=== PATIENT | male | born 1970 ===

== ENCOUNTER → 2020-05-19 | Day surgery (SDC) | payer OTHER ==
[~2020-05-19] MED LIST: KETOROLAC TROME10 MG PO; MINIPRES1 MG PO; PERCOCET 5-3251 EACH PO; PRINIVIL20 MG PO; TOPROL XL 25MG25 MG PO; TRAZODONE 100M100 MG PO
[2020-05-19 07:43] LABS: HCT 46.9 % (42.0-52.0); HGB 15.6 g/dl (13.2-18.0); MCH 29.2 pg (25.0-31.0); MCHC 33.3 g/dL (32.0-36.0); MCV 87.7 fL (78.0-100.0); MPV 9.6 fL (6.0-9.5); RBC 5.35 M/uL (4.70-6.00); RDW 13.4 % (11.5-14.0); WBC 8.7 K/uL (4.0-10.5)
[2020-05-19 08:07] LABS: ALBUMIN 3.6 g/dL (3.4-5.0); BILIRUBIN - TOTAL 0.3 mg/dL (0.2-1.0); GLOBULIN (CALCULATION) 3.9 g/dL; POTASSIUM 4.1 mmol/L (3.5-5.1); TOTAL PROTEIN 7.5 g/dL (6.4-8.2)
== END | disposition home or self-care (01) ==
LOC: FAS 06:43
PROVIDERS: Orthopaedic Surgery
DX: S83.232A Complex tear of medial meniscus, current injury, left knee, initial encounter (principal); M79.4 Hypertrophy of (infrapatellar) fat pad; M25.862 Other specified joint disorders, left knee; F17.210 Nicotine dependence, cigarettes, uncomplicated; I10 Essential (primary) hypertension; Z79.899 Other long term (current) drug therapy; Z88.0 Allergy status to penicillin; X58.XXXA Exposure to other specified factors, initial encounter
CPT/HCPCS: 36415; 80053; J1100; J1170; J2250; J2405; J2704; J3010; J7120